=== PATIENT | female | born 1990 | race African-American/Black ===

== ENCOUNTER 2022-01-12 16:29 | Emergency (ER) | payer MEDICAID, SELFPAY ==
[2022-01-12 17:16] VITALS: BP 107/70; PULSE 99; RESP 18; TEMP 37; O2SAT 97; BMI 22.5
[2022-01-12 18:33] VITALS: PULSE 104; RESP 20; O2SAT 97
--- NOTE | 2022-01-12 18:36 | CRLHL7_ITS ---
For Patients: As a result of the Cures Act, medical imaging exams and procedure reports are released immediately into your electronic medical record. You may view this report before your referring provider. If you have questions, please contact your health care provider. INDICATION: Cough, fever, recent influenza. TECHNIQUE: Chest 1 views. COMPARISON: None. FINDINGS: Lungs: Normal lung volume. Middle lobe airspace disease. The tracheobronchial tree and hilar structures are unremarkable. Pleura: No pleural effusion or pneumothorax. Heart and Mediastinum: Normal heart size. The great vessels of the thorax are unremarkable. Bones: No acute displaced osseous process. IMPRESSION: Middle lobe pneumonia. Recommend follow-up radiographs in 8 weeks to document resolution. Dictated by Stanford Salinas MD @ 01/12/2022 6:58:36 PM (Electronically Signed)
[2022-01-12] MEDS: ACETAMINOPHEN 500 MG TABLET 1000 MG PO (19:03)
[2022-01-12] MEDS: DOXYCYCLINE HYCLATE 100 MG CAPSULE PO (21:03)
--- NOTE | 2022-01-13 19:45 | ED.GENADULT ---
HPI - General Adult General Chief complaint: Cough Stated complaint: chest pain Time Seen by Provider: 01/12/22 18:36 History of Present Illness HPI narrative: 31-year-old woman presenting to the emergency department with concern of persistent cough and now new right-sided mid chest pain. Her 2 daughters she brings long as well had similar symptoms. She herself has been experiencing some sweats at night now. Has vomited. No diarrhea noted. Was diagnosed with influenza A 4 - 5 days ago. Drove down from [place]. Related Data Previous Rx's Medication Instructions Recorded doxycycline monohydrate 100 mg 100 mg PO BID 10 days #20 caps 01/12/22 capsule doxycycline monohydrate 100 mg 100 mg PO BID #10 caps 01/13/22 capsule Allergies Allergy/AdvReac Type Severity Reaction Status Date / Time No Known Drug Allergies Allergy Verified 01/12/22 17:19 Review of Systems Status of ROS: Reports: 6 or more systems reviewed and unremarkable except as noted in History and below PFSH PFS Social History Smoking Status: Never smoker Do you use any of these nicotine containing products: None Second hand tobacco smoke exposure: No How often do you have a drink containing alcohol: never AUDIT-C Alcohol total score: 0 Non-prescribed substance use: denies use service: No Exam Narrative: Exam Narrative: Very pleasant. Other than recurrent cough, NAD. Smaller stature. Does sound a little congested the nasopharynx. No facial swelling or erythema. TMs are clear generally clear/transparent yellow with some central erythema though. Oropharynx is moist with some mild erythema posteriorly. Neck is supple without lymphadenopathy. Lungs with diffuse crepitus mild. More so in the right chest. Cardiovascular is elevated rate tachycardic no murmur rub or gallop identified. Regular rhythm. A little sore to right-sided chest palpation. Well perfused peripherally. No edema. Const: Documenting provider has reviewed patient's vital signs: yes Course Vital Signs Vital signs: Initial Vital Signs Temperature 98.6 F 01/12/22 17:16 Temperature Source Temporal Artery Scan 01/12/22 17:16 Pulse Rate 99 01/12/22 17:16 Respiratory Rate 18 01/12/22 17:16 Blood Pressure 107/70 01/12/22 17:16 Blood Pressure Mean 82 01/12/22 17:16 Blood Pressure Position Supine 01/12/22 17:16 Pulse Oximetry 97 01/12/22 17:16 Oxygen Delivery Method 01/12/22 17:16 Vital Signs Temperature 98.6 F 01/12/22 17:16 Pulse Rate 99 01/12/22 17:16 Respiratory Rate 18 01/12/22 17:16 Blood Pressure 107/70 01/12/22 17:16 Pulse Oximetry 97 01/12/22 17:16 Oxygen Delivery Method 01/12/22 17:16 Temperature 98.6 F 01/12/22 17:16 Pulse Rate 104 H 01/12/22 18:33 Respiratory Rate 20 01/12/22 18:33 Blood Pressure 107/70 01/12/22 17:16 Pulse Oximetry 97 01/12/22 18:33 Oxygen Delivery Method 01/12/22 18:33 Medical Decision Making MDM Narrative Medical decision making narrative: Is not particularly labored with breathing. Does demonstrate frequent cough. Chest x-ray reviewed by me does show some fullness in the perihilar area more so on the right side and Radiology does suspect that this is indeed a right-sided infiltrate. has been vitally stable Discharge Plan Discharge Clinical Impression: Pneumonia and influenza Patient Disposition: Home, Self-Care Condition: Stable Instructions: Influenza (ED), Pneumonia (ED) Additional Instructions: Hydrate. Can take up to 600 mg of ibuprofen or up to 850 mg of acetaminophen per dose. Sleep under the mist of a cool mist humidifier. Menthol vapors might be helpful. Delsym for cough perhaps. Return for persistent and increased rate/work of breathing, marked increase in chest pain, fever persisting it for another 3 days. I would recommend getting a thermometer if possible. Would also follow up for a chest x-ray in a couple of months to verify resolution. Doxycycline. Prescriptions: New doxycycline monohydrate 100 mg capsule 100 mg PO BID 10 Days Qty: 20 0RF doxycycline monohydrate 100 mg capsule 100 mg PO BID Qty: 10 0RF Follow Up/Referrals: Ambreen Hurt DO [Primary Care Provider] - Stand Alone Forms: [facility] Info Instructions
== END 2022-01-12 21:09 | disposition home or self-care (01) ==
PROVIDERS: Emergency Provider Family Medicine; PCP Family Medicine
DX: J18.9 Pneumonia, unspecified organism (principal); J10.1 Influenza due to other identified influenza virus with other respiratory manifestations
CPT/HCPCS: 71045; 99284; A9270